=== PATIENT | female | born 1980 | race African-American/Black ===

== ENCOUNTER 2021-09-12 11:00 | Emergency (ER) | payer SELFPAY ==
[2021-09-12 13:30] LABS: Pregu Control Background? CLEAR/WHITE (CLR/WHITE); Pregu Control Bar Appear? YES (CONTROL BAR); Specific Gravity 1.025 (1.002-1.036)
[2021-09-12 13:33] LABS: Pregnancy Test - Urine (BHCG) Negative (Negative)
== END 2021-09-12 13:11 | disposition home or self-care (01) ==
LOC: CSHERS 11:00
DX: N76.0 Acute vaginitis (principal); R30.0 Dysuria; Z87.891 Personal history of nicotine dependence
CPT/HCPCS: 81025; 87480; 87491; 87510; 87591; 87660; 99283

== ENCOUNTER 2024-10-26 08:48 | Outpatient (CLI) | payer OTHER | END 2024-10-26 08:49 | disposition home or self-care (01) | LOC: CSHMAMMO 08:48 | PROVIDERS: ATTEND Family Medicine | DX: Z12.31 Encounter for screening mammogram for malignant neoplasm of breast (principal) | CPT/HCPCS: 77063; 77067 ==